=== PATIENT | male | born 1970 | race Caucasian/White ===

== ENCOUNTER 2023-08-08 08:15 | Observation (INO) ==
--- NOTE | 2023-07-25 11:36 | PAT Medication Instructions ---
Medication Instructions Date of Service July 25, 2023 Home Medications bupropion HCl 150 mg 24 hr tablet, extended release (Wellbutrin XL) 150 mg PO QAM carvedilol 12.5 mg tablet (Coreg) 12.5 mg PO QAM cholecalciferol (vitamin D3) 125 mcg (5,000 unit) tablet (Vitamin D3) 125 mcg PO DAILY folic acid 1 mg tablet 1 mg PO DAILY paroxetine HCl 30 mg tablet (Paxil) 30 mg PO HS rosuvastatin 10 mg tablet (Crestor) 10 mg PO HS MEDICATION INSTRUCTIONS: DO NOT take the morning of surgery cholecalciferol (vitamin D3) 125 mcg (5,000 unit) tablet (Vitamin D3) 125 mcg PO DAILY folic acid 1 mg tablet 1 mg PO DAILY Take morning of surgery With a small sip of water, OTHERWISE NOTHING TO EAT OR DRINK AFTER MIDNIGHT: bupropion HCl 150 mg 24 hr tablet, extended release (Wellbutrin XL) 150 mg PO QAM carvedilol 12.5 mg tablet (Coreg) 12.5 mg PO QAM Take evening before surgery paroxetine HCl 30 mg tablet (Paxil) 30 mg PO HS rosuvastatin 10 mg tablet (Crestor) 10 mg PO HS Other Notes If you have any questions please call us at [phone] or [phone] or [phone] or [phone]
--- NOTE | 2023-07-29 10:16 | Anesthesiology Consultation ---
Date of Service July 29, 2023 Assessment & Plan (1) Encounter for pre-operative examination: Outpatient joint assessment: Patient is currently scheduled for inpatient pathway. If re-evaluated and patient/surgeon requests outpatient pathway, patient is not ideal candidate for outpatient joint program from anesthesia standpoint. Chart Review Chart Review: Acceptable Risk for Surgery and Patient seen in Pre Admission Testing Teaching & Discussion Pre-Anesthesia Teaching/Discussion Notes: Instructed NPO after midnight before surgery, except medications with 15 cc of water. Medication instructions provided according to the PAT guidelines. History Surgery Operation Date: 08/08/23 12:00 Proposed Procedures p Left Total Hip Arthroplasty Anterior - Horace Morales, Height/Weight Height: 5 ft 10 in Weight: 94.1 kg Allergies Allergy/AdvReac Type Severity Reaction Status Date / Time No Known Allergies Allergy Unverified 07/21/23 08:40 Medications Home Medications Medication Instructions Recorded Confirmed Last Taken bupropion HCl 150 mg 24 hr tablet, 150 mg PO QAM 07/20/23 07/21/23 Unknown extended release (Wellbutrin XL) carvedilol 12.5 mg tablet (Coreg) 12.5 mg PO QAM 07/20/23 07/21/23 Unknown cholecalciferol (vitamin D3) 125 125 mcg PO DAILY 07/20/23 07/21/23 Unknown mcg (5,000 unit) tablet (Vitamin D3) folic acid 1 mg tablet 1 mg PO DAILY 07/20/23 07/21/23 Unknown paroxetine HCl 30 mg tablet (Paxil) 30 mg PO HS 07/20/23 07/21/23 Unknown rosuvastatin 10 mg tablet (Crestor) 10 mg PO HS 07/20/23 07/21/23 Unknown Past Medical History Medical History (Updated 08/02/23 @ 09:25 by Nakia Priest PA-C) Anxiety and depression Avascular necrosis of bone of left hip High cholesterol History of COVID-19 x 3 > last time 05/2022- no hosp, resolved Hypertension controlled, stable per pt Sleep apnea no device, has lost 40lbs since diagnosis Spinal stenosis 2021 MRIs scanned to chart Patient denies h/o stroke, seizures, heart attack, heart failure, DM, blood clots/DVTs or blood transfusions. Exercise / Class Metabolic Activity II 4-5 Yardwork/Stairs/Walk up hill (denies chest discomfort or shortness of breath with one flight of stairs) Past Family History Family History Other No family history of adverse response to anesthesia Past Surgical History Surgical History (Updated 07/29/23 @ 10:25 by Nakia Priest PA-C) History of cystoscopy for hematuria-attributed to acute prostatitis-negative cystoscopy per pt History of laminectomy History of repair of ACL right History of repair of rotator cuff right History of vasectomy History of wisdom tooth extraction Hx of colonoscopy S/P nerve repair nerve decompression right leg Past Anesthesia History No Hx of Anesthesia Complications and No Family Hx of Anesthesia Complications History of PONV History of PONV (with rotator cuff repair) and Hx of Motion Sickness Social History Smoking Status: Former smoker Do You Dip or Chew Tobacco: No Smoking End Date: quit 28 yrs ago Hx Alcohol Use: Yes (1-2/day) Alcohol type: hard liquor alcohol intake frequency: 0-2 drinks per day Hx Substance Use: No substance use type: does not use Review of Systems Patient denies chest pain, shortness of breath, dyspnea on exertion, reflux, fever, chills, cough, wheezing, or palpitations. Physical Exam Vital Signs Vitals BP 165/104 automatic left arm; 162/98 manual left arm after patient rested (he notes this is typical BP range in new clinical settings) P 74 TEMP 98 SP02 97% on RA RESP 18 Physical Patient resting comfortably in chair in no acute distress, alert and oriented, responding appropriately throughout visit Full cervical extension range of motion without pain TMD 3.5 finger breadths Mallampati Score 3 Dentition: intact, denies chipped or loose teeth, caps/crowns, implants or bridges Lungs: normal respiratory effort. Good air movement, clear throughout to auscultation, no adventitious breath sounds Cardiac: regular rate and rhythm, no murmurs noted Carotid arteries: negative bruit bilat Lab Results Anesthesia Preop Results Results Anesthesia Widget: WBC 8.20 K/ul (4.8-10.8) 07/29/23 Hgb 14.7 g/dl (14.0-18.0) 07/29/23 Hct 42.6 % (42.0-52.0) 07/29/23 Plt 257 K/uL (130-400) 07/29/23 Na 137 mmol/L (136-145) 07/29/23 K 4.0 mmol/L (3.5-5.1) 07/29/23 Cl 103 mmol/L (98-107) 07/29/23 CO2 26 mmol/L (21-32) 07/29/23 BUN 17 mg/dl (6-23) 07/29/23 Creat 0.85 mg/dl (0.6-1.4) 07/29/23 Glucose Level 119 mg/dl (70-99(Fasting)) H 07/29/23 PT 10.4 Seconds (9.0-12.0) 07/29/23 PTT 28 Seconds (21-31) 07/29/23 INR 1.0 (0.9-1.1) 07/29/23 Blood Type O Positive 07/29/23 Antibody Screen NEGATIVE 07/29/23 Testing Electrocardiogram Date: 07/29/23 NSR, rate 71 bpm Chest X-Ray Date: 07/29/23 No acute process. Stress Test Date: 10/24/18 Exercise METS 9 MPHR 94% Negative for exertional angina, but does demonstrate positive ECG criteria for myocardial ischemia Cardiology ordered repeat testing which was completed 11/10/18 METS 10 MPHR 91% Exercise stress EKG and echo are both negative for ischemia
[~2023-08-08 08:15] MED LIST: BUPIVACAINE 0.5 % 5 MG/1 ML PF 10ML VIAL ONE
[2023-08-08] MEDS ORDERED: LIDOCAINE 2% 2 ML VIAL/AMP(20MG/ML) INFIL ONE (08:41)
[2023-08-08] MEDS ORDERED: MIDAZOLAM HCL 1 MG/ML 2ML VIAL ONE ×2 (08:41→10:24)
[2023-08-08] MEDS ORDERED: fentaNYL citrate PF 100 MCG/2 ML VIAL ONE (08:41)
[2023-08-08] MEDS ORDERED: PROPOFOL IV EMULSION 10 MG/ML 20 ML VIAL IV ONE (08:41)
[2023-08-08] MEDS ORDERED: ONDANSETRON INJ 2 MG/ML 2 ML VIAL ONE (08:41)
[2023-08-08] MEDS: LR 500ML BOLUS, THEN 15ML/HR IV SCH (08:52)
--- NOTE | 2023-08-08 09:17 | History & Physical Bridge Note ---
Date of Service August 08, 2023 History & Physical Bridge Note I have examined the patient, reviewed the History & Physical and in the interval since the performance of the History & Physical I have noted the following changes of clinical significance: no changes noted
[2023-08-08] MEDS: METOCLOPRAMIDE HCL 10 MG TABLET PO SCH (09:21)
[2023-08-08] MEDS: CeleBREX 200 MG CAP PO SCH (09:21)
[2023-08-08] MEDS: GABAPENTIN 900 MG DOSE PO SCH (09:21)
[2023-08-08] MEDS: ACETAMINOPHEN 500 MG TAB PO SCH ×2 (09:21→14:31)
[2023-08-08] MEDS: FAMOTIDINE 20 MG TAB PO SCH (09:21)
[2023-08-08] MEDS ORDERED: fentaNYL citrate PF 100 MCG/2 ML VIAL IV PRN (09:56)
[2023-08-08] MEDS: TRANEXAMIC ACID 1,000 MG **IV Pre-op IV SCH (09:56)
[2023-08-08] MEDS ORDERED: ePHEDrine sulfate 50 MG/ML AMP IV PRN (09:56)
[2023-08-08] MEDS ORDERED: ONDANSETRON INJ 2 MG/ML 2 ML VIAL IV PRN ×2 (09:56→13:17)
[2023-08-08] MEDS ORDERED: ATROPINE SULFATE 0.1 MG/ML 10ML SYR IV PRN (09:56)
[2023-08-08] MEDS: ceFAZolin 2000MG 2,000 MG/15 ML SYR IV SCH ×2 (10:10→17:34)
[2023-08-08] MEDS ORDERED: KETAMINE HCL 10MG/ML SYR ONE (10:41)
[2023-08-08] MEDS ORDERED: PHENYLEPHRINE HCL 10 MG/ML VIAL ONE (11:07)
[2023-08-08] MEDS: ROPIV 0.5% 246mg, Ketorolac 30mg, EPINEPHrine 0.5mg in NSS INFIL SCH (11:19)
[2023-08-08] MEDS: TRANEXAMIC ACID 1,000 MG **IV Intra-op IV SCH (11:19)
[2023-08-08] MEDS: ORTHO JOINT ANESTHETIC ONE (11:20)
--- NOTE | 2023-08-08 11:23 | Operative Report ---
PG Post Operative Report Pre & Post Diagnosis Operation Date: 08/08/23 10:00 Pre-Op Diagnosis: Left hip Degenerative Joint Disease Post-Op Diagnosis: Left hip Degenerative Joint Disease I identified the patient and participated in the time-out.: Yes Procedure Operation Date: 08/08/23 10:00 Actual Procedures p Left Anterior Total Hip Arthroplasty(Left) - Horace Morales DO Surgeon Horace Morales DO Actuarial Trainee Horace Canada PA-C Estimated Blood Loss 300 Findings Consistent with Post-Op Diagnosis Specimens Left femoral head Description of Procedure Implants used I used a ZimmerBiomet total hip arthroplasty system with a size 4 standard offset Avenir Complete stem, a 52 mm G7 cup with a 25mm screw, an E1 polyethylen e liner, a 36 mm ceramic head with a 0 neck. Chris arrived at the hospital for the above procedure. He was seen in the preoperative holding area and the operative extremity was identified and signed. He was given a spinal anesthetic, a preoperative antibiotic, and TXA. He was then taken back to the operating room and laid on the table in the supine position. He was given basic sedation. The operative leg was secured to a Puristst leg positioner. The hip was then prepped and draped in sterile fashion. A timeout was done and the patient and the operative extremity was properly identified. An anterior approach was used. Dissection was taken down through the fascia and the tensor muscle belly was retracted laterally and the rectus was retracted medially. The circumflex vessels were identified and ligated. The capsule was then incised and tagged for later repair. The femoral neck was then cut and the femoral head was removed. The acetabulum was exposed. Time was spent doing a complete circumferential labral release. Sequential reaming of the acetabulum up to a size 51 reamer was done. Final reamings were done under fluoroscopy to ensure appropriate version. A Biomet 52 mm G7 cup was then impacted into place. A single 25 mm screw was placed. The E1 polyethylene liner was then snapped into place. Surrounding soft tissues were then injected with 100 cc of an orthopedic pain control cocktail. The proximal femur was then exposed. Sequential broaching up to a size 4 broach was done. Off that broach a size 36 head with a 0 neck was trialed. The hip was reduced and fluoroscopic images showed anatomic alignment of the implants in acceptable length. The broach was removed. The final size 4 standard offset Avenir Complete stem was then impacted into place. A ceramic 36 mm head with a 0 neck was then impacted onto the stem and the hip was reduced. Final fluoroscopic images showed anatomic alignment of the hip. The capsule was then closed with #1 Vicryl suture. A dilute betadyne lavage was then done for 3 minutes. The joint was then irrigated with normal saline solution. The fascia was closed with #1 PDS suture. Skin was closed with 2-0 Vicryl, tayler, and a Silverlon dressing. He was then transferred to a hospital bed and taken to the post anesthesia care unit in stable condition. He tolerated the procedure well. Horace Canada PA-C, was present for the entire procedure. He was critical for patient positioning, prepping, draping, retraction exposure, wound closure and application of sterile dressing. I attest to the content of the Intraoperative Record and any orders documented therein. Any exceptions are noted below.
--- NOTE | 2023-08-08 12:47 | Fluoroscopy Report ---
FL hip LT 1V CLINICAL HISTORY: LEFT ANTERIOR JANETT COMPARISON STUDY: MRI of the left hip July 07, 2023. FLUOROSCOPY TIME: 12 seconds. Ka,r : 2.5264 mGy FLUOROSCOPIC IMAGES: 1 FINDINGS: Fluoroscopy was provided during anterior total left hip arthroplasty. Hardware is intact. T here is an acetabular screw. No unexpected radiopaque foreign bodies are identified. IMPRESSION: Fluoroscopy provided during anterior total left arthroplasty. ACT 112: Negative or not required by law. Electronically signed by: Jay Chacko M.D. 08/08/2023 12:45 PM
--- NOTE | 2023-08-08 12:50 | Anesthesiology Progress Note ---
Date of Service August 08, 2023 Anesthesia Post Procedure Vital Signs Vital Signs: Temp Pulse Pulse Resp BP Pulse Ox O2 Del Method 08/08/23 12:40 67 12 125/72 97 Room Air 08/08/23 12:30 66 12 118/72 92 Room Air 08/08/23 12:20 66 14 119/73 96 Room Air 08/08/23 12:10 71 14 107/69 96 Room Air 08/08/23 12:00 78 18 131/82 95 Room Air 08/08/23 11:50 62 12 122/81 100 Oxymask 08/08/23 11:42 98.1 F 76 20 122/72 97 Oxymask 08/08/23 09:02 98.6 F 73 17 142/92 H 97 Room Air O2 Flow Rate 08/08/23 12:40 08/08/23 12:30 08/08/23 12:20 08/08/23 12:10 08/08/23 12:00 08/08/23 11:50 10 08/08/23 11:42 10 08/08/23 09:02 Pain Intensity Left Hip: Pain Intensity: 5 Transfer of Care Handoff Completed per policy Notes Mental Status: alert / awake / arousable and participated in evaluation Patient Amnestic to Procedure: Yes Nausea / Vomiting: adequately controlled Pain: adequately controlled Airway Patency, RR, SpO2: stable & adequate BP & HR: stable & adequate Hydration State: stable & adequate Neuraxial Anesthesia: was administered and sensory block is resolving Anesthetic Complications: no major complications apparent and Pt Satisfied with anesthetic care
--- NOTE | 2023-08-08 13:05 | XRay Report ---
XR hip 1V LT w pelvis CLINICAL HISTORY: Postoperative evaluation. COMPARISON: MRI of the left hip July 07, 2023. FINDINGS: Alignment of the total left hip arthroplasty is anatomic. There is no periprosthetic fract ure or unexpected radiopaque foreign body. Acetabular screw is in place. There are skin tayler. IMPRESSION: Expected findings following total left hip arthroplasty. ACT 112: Negative or not required by law. Electronically signed by: Jay Chacko M.D. 08/08/2023 1:04 PM
[2023-08-08] MEDS ORDERED: MAGNESIUM HYDROXIDE SUSP 30 ML UDC PO PRN (13:17)
[2023-08-08] MEDS ORDERED: NALOXONE HCL 0.4 MG/1 ML VIAL/CARP IV PRN (13:17)
[2023-08-08] MEDS ORDERED: bisacodyL 10 MG SUPP PR PRN (13:17)
[2023-08-08] MEDS ORDERED: METOCLOPRAMIDE HCL INJ 5 MG/ML 2 ML VIAL IV PRN (13:17)
[2023-08-08] MEDS: LR 60ML/HR IV SCH (13:42)
[2023-08-08] MEDS: KETOROLAC 30 MG/ML VIAL IV SCH (14:31)
[2023-08-08] MEDS: SODIUM CHLORIDE 0.9% 1,000 ML IV SCH (14:31)
[2023-08-08] MEDS: oxyCODONE HCL IR 5 MG TAB (IMMEDIATE RELEASE) PO PRN (16:09)
[2023-08-08] MEDS: PARoxetine HCL 10 MG TAB PO SCH (20:52)
[2023-08-08] MEDS: SENNA 8.6 MG TAB PO SCH (20:52)
[2023-08-08] MEDS: ASPIRIN 81 MG ECTAB PO SCH (20:52)
[2023-08-08] MEDS: ROSUVASTATIN CALCIUM 10 MG TAB PO SCH (20:52)
[2023-08-08] MEDS: DOCUSATE SODIUM 100 MG CAP PO SCH (20:52)
[2023-08-08] MEDS: HYDROmorphone INJ 0.5 MG/0.5 ML SYR IV PRN (21:23)
--- NOTE | 2023-08-09 06:50 | Orthopedic Progress Note ---
Date of Service August 09, 2023 Assessment & Plan (1) Status post left hip replacement: Overall he is doing well. He is not having much pain in the left hip. He will be seen by physical therapy today for ambulation and range of motion exercises. He is on aspirin for DVT prophylaxis. He can be discharged home later today. He will follow-up with orthopedics in 2 weeks. Bassam Perez was seen and examined at bedside this morning. Overall he is doing very well. He is not having much pain in the left hip. He has not been up and ambulating yet. He is looking forward to therapy this morning. He has no complaints.. Review of Systems All systems reviewed & are unremarkable except as noted in HPI & below. Physical Exam On physical examination left hip, the dressing is clean and dry. His leg is out in full extension. He has active dorsiflexion plantarflexion of his left ankle.. Results & Data Results & Data Laboratory Results . Diagnostic Findings Postoperative x-rays of the left hip show the prosthesis to be in anatomic alignment without any evidence of fracture complication, or loosening.. PG Care Time/CCT Total # of Minutes Spent Total Time Spent with Patient: Total time spent is greater than 50% in coordination of care (as documented) at patient's floor/unit and/or counseling patient: Coding Level of Care Code 16512 Post Operative Follow-Up Diagnoses Status post left hip replacement Z96.642
--- NOTE | 2023-08-09 06:51 | Discharge Summary ---
Date of Service August 09, 2023 Principal Diagnosis Same as "Discharge Diagnosis" noted below under Discharge Instructions. Discharge Exam On physical examination left hip, the dressing is clean and dry. His leg is out in full extension. He has active dorsiflexion plantarflexion of his left ankle.. Discharge Data Procedures Performed Operation Date: 08/08/23 10:00 Actual Procedures p Left Anterior Total Hip Arthroplasty(Left) - Horace Morales DO Ordered Studies 08/08/23 FL hip LT 1V Routine Hospital Course (1) Status post left hip replacement: On August 08, 2023 Chris arrived at [facility] and underwent a left hip replacement without complication. He had a spinal anesthetic. Postoperatively he was started on aspirin for DVT prophylaxis and transferred to the general orthopedic floors. His hospital course was uneventful. On postop day #1, his vital signs were stable and his pain was well-controlled. He was able to participate well with physical therapy doing ambulation and range of motion exercises. He was then discharged home. He will follow-up with orthopedics in 2 weeks. PG Care Time/CCT Total # of Minutes Spent Total Time Spent with Patient: Total time spent is greater than 50% in coordination of care (as documented) at patient's floor/unit and/or counseling patient: Discharge Plan Discharge Items Patient Disposition: Home - Self-Care Reason For Visit: Left hip DJD Discharge Diagnosis: Left hip replacement Activity: As commented below Non-emergency contact: Surgeon Call non-emergency contact if: your wound has increased redness and your wound has increased drainage Follow-up/Referrals: PCP,NO [Primary Care Provider] - Diet: Regular Addtl Attending Provider Instructions: Activity and Therapy Recommendations: * If you are using [facility] then therapy will be provided at your home until they feel you have accomplished all of your goals. * If you are using [facility] then Physical Therapy will be provided until they feel you are ready to start Outpatient Physical Therapy. * If you are not using home therapy then Outpatient Physical Therapy should start about 3-5 days from your day of surgery. Therapy will last about 6-10 weeks * You were shown a series of exercises in the hospital. Do these exercises three times each day including the exercises you were shown in physical therapy. * Get up and walk several times each day.~ For the first four weeks, try not to stand or walk for more than one hour at a time. If you do stand or walk for more than one hour, you will not hurt anything, but your leg will likely swell.~~ * As you feel comfortable, you may change from the walker or crutches to a cane and~then to independent walking. Medications: * Narcotic You will likely be sent home from the hospital with a prescription for the narcotic pain medication that worked best throughout your stay. * Cefadroxil -take the antibiotic twice a day for 10 days to help prevent infection. * Aspirin Most patients will be required to take Aspirin 81mg twice a day for 6 weeks after surgery. This is obtained [id number] and a prescription is not necessary. * Other medications may be prescribed for specific circumstances. If you have any questions, please call the office at . * Resume previous home medications unless otherwise instructed TEDs/Elastic Stockings: The white elastic stockings help limit swelling and prevent blood clots from forming in your legs. The more you wear them, the more they work. Wear them for six weeks. Dressing Care: Leave the Silverlon dressing in place for 7 days. After 7 days you may remove the dressing. If the incision is not draining then you may leave the tayler open to air. If there is a little bit of drainage or if the tayler are getting stuck on your clothing then cover the incision with a dry dressing. The tayler will be removed at your 2 week follow-up appointment. Showering: You may shower with the Silverlon dressing in place. Do not let the shower spray hit the dressing directly. Pat the Silverlon dressing dry. If the dressing becomes wet underneath, then simply remove the dressing. Keep the incision dry until you are 7 days out from the day of surgery. After 7 days you may remove the Silverlon dressing and shower with the tayler exposed. Let soapy water run over the tayler and pat them dry. Do not scrub or soak the incision. Things To Watch For: * Drainage from the incision site that occurs more than one week after your surgery. * Increased redness at the incision site. * Fever above 102 degrees Fahrenheit. * Unusual chest pain or shortness of breath. * Call [facility] at with any of the above proble ms Follow-Up Visit: Follow-up with Dr. Morales's PA (Horace Canada) 2-3 weeks after your day of surgery. He will remove your tayler and answer any questions. If you have any additional questions or concerns, Dr Morales is usually in the office at the same time and will be available An appointment was probably scheduled when you signed-up for surgery in the office. If you have any questions call Office Instructions: More detailed instructions as well as Frequently Asked Questions were provided in a folder by our office when you signed-up for surgery. Please review these instructions when you get home. If you have any further questions or concerns, please feel free to call the office at [phone] Pending Studies at Discharge: No Stand-Alone Forms: My [facility] Medications and DC Order Prescriptions: New oxycodone 5 mg Tablet 5 mg PO Q4H PRN (Reason: pain) Qty: 30 0RF cefadroxil 500 mg capsule 500 mg PO BID 10 Days Qty: 20 0RF aspirin 81 mg Tablet,Delayed Release (Dr/Ec) 81 mg PO BID 42 Days Qty: 84 0RF Continued paroxetine HCl [Paxil] 30 mg tablet 30 mg PO HS bupropion HCl [Wellbutrin XL] 150 mg tablet extended release 24 hr 150 mg PO QAM rosuvastatin [Crestor] 10 mg tablet 10 mg PO HS folic acid 1 mg tablet 1 mg PO DAILY carvedilol [Coreg] 12.5 mg tablet 12.5 mg PO QAM Rx Instructions: must administer with a meal/food cholecalciferol (vitamin D3) [Vitamin D3] 125 mcg (5,000 unit) tablet 125 mcg PO DAILY Discharge Orders: Discharge Order (Routine); Ordered 08/09/23 Ordered By: Horace Morales Admission Data Admit Date/Time: 08/08/23 11:47 Attending Provider: Horace Morales Admit Provider: Horace Morales Primary Care Provider: [email or web address]
[2023-08-09] MEDS: dexAMETHasone 4 MG TAB PO SCH (07:28)
[2023-08-09] MEDS: carvediloL 12.5 MG TAB PO SCH (09:26)
[2023-08-09] MEDS: FOLIC ACID 1 MG TAB PO SCH (09:26)
[2023-08-09] MEDS: buPROPion XL 150 MG TABCR PO SCH (09:26)
[2023-08-09] MEDS: MULTIVITAMIN TAB PO SCH (09:27)
== END 2023-08-09 10:16 | disposition home or self-care (01) ==
LOC: ASU 08:15 → 3E 08:15